=== PATIENT | female | born 1975 | race Caucasian/White ===

== ENCOUNTER → 2017-06-30 | Outpatient (CLI) | payer BC ==
[~2017-06-30] MED LIST: PRENTAB26 PO
--- NOTE | 2017-06-30 16:29 | DIAGNOSTIC IMAGING REPORT ---
RIGHT KNEE MRI HISTORY: RIGHT KNEE PAIN COMPARISON STUDY: Right knee 06/24/2017. TECHNIQUE: Multiplanar multisequence MRI of the right knee was performed according to standard department protocol without the use of contrast. FINDINGS: Menisci: There is a small oblique tear at the junction of the body and posterior horn of the medial meniscus which extends to the outer surface. This is best seen on the sagittal proton density sequences image 17. The lateral meniscus is intact. Ligaments: The anterior and posterior cruciate ligaments are intact. The medial and lateral collateral ligaments are normal in appearance. Extensor mechanism: The quadriceps tendon and patellar ligament are intact. Articular cartilage and bone: No fracture or dislocation. Normal marrow signal intensity within the knee. Mild cartilage fraying within the medial compartment of the patella. The remaining cartilage spaces are well maintained. Joint effusion: None. Soft tissues: Intact. IMPRESSION: 1. Small oblique tear at the junction of the body and posterior horn of the medial meniscus. 2. Mild cartilage fraying within the medial compartment of the patella. Electronically signed by: Neal Tadeo M.D. 06/30/2017 4:28 PM Dictated Date/Time: 06/30/2017 4:14 PM
== END | disposition home or self-care (01) ==
LOC: C.MRIBC 15:26
PROVIDERS: ATTEND Orthopaedic Surgery
DX: M25.561 Pain in right knee (principal)